=== PATIENT | male | born 1945 | race Caucasian/White ===

== ENCOUNTER 2017-04-07 04:54 | Emergency (ER) | payer BC, MEDICARE ==
[~2017-04-07] VITALS: Ht 193 cm; Wt 120.0 kg
[~2017-04-07 04:54] MED LIST: OXYC-360
[2017-04-07 04:57] VITALS: BP 132/69; PULSE 106; RESP 18; TEMP 99.6; O2SAT 95
[2017-04-07] MEDS ORDERED: ASPI-110 PO (05:06)
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
[2017-04-07] MEDS ORDERED: VITA250T3 PO (05:43)
[2017-04-07] MEDS ORDERED: LISI-515 PO (05:43)
[2017-04-07] MEDS ORDERED: VITACAP7 PO (05:43)
[2017-04-07] MEDS ORDERED: AMBI10TA PO (05:43)
[2017-04-07] MEDS ORDERED: VITA100036 PO (05:43)
[2017-04-07] MEDS ORDERED: DOXA1TAB36 PO (05:43)
[2017-04-07] MEDS ORDERED: AMLO5TAB2 PO (05:43)
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
== END 2017-04-07 06:46 | disposition home or self-care (01) ==
LOC: NEPC 04:54
DX: K08.409 Partial loss of teeth, unspecified cause, unspecified class (principal); S09.90XA Unspecified injury of head, initial encounter; F17.200 Nicotine dependence, unspecified, uncomplicated; Z79.82 Long term (current) use of aspirin; Z87.39 Personal history of other diseases of the musculoskeletal system and connective tissue; V19.3XXA Pedal cyclist (driver) (passenger) injured in unspecified nontraffic accident, initial encounter; Y93.55 Activity, bike riding
CPT/HCPCS: 70450; 70486; 72125; 99285

== ENCOUNTER 2017-04-17 05:22 | Emergency (ER) | payer MEDICARE ==
[~2017-04-17 05:22] MED LIST changes: +AMBI10TA PO; +AMLO5TAB2 PO; +ASPI-110 PO; +DOXA1TAB36 PO; +LISI-515 PO; -OXYC-360; +VITA100036 PO; +VITA250T3 PO; +VITACAP7 PO
[2017-04-17 05:23] VITALS: BP 145/86; PULSE 100; RESP 15; TEMP 98.2; O2SAT 95
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
--- NOTE | 2017-04-17 06:51 | RADRPT ---
EXAM DATE/TIME: 04/17/2017 06:08 [facility] COMPARISON: No previous studies available for comparison. INDICATIONS : Elbow pain. MEDICAL HISTORY : None. SURGICAL HISTORY : None. ENCOUNTER: Initial ACUITY: 2 weeks PAIN SCORE: 7/10 LOCATION: Left upper extremity elbow, posterior. FINDINGS: Multiple view examination of the left elbow demonstrates soft tissue swelling over the extensor surfa ce of the elbow. Calcification in the soft tissues posteriorly may relate to prior injury. No acute b yolanda abnormality. CONCLUSION: 1. Soft tissue swelling on the extensor surface the elbow. No acute bony abnormality. Carlos Garcia MD on April 17, 2017 at 6:48 Board Certified Radiologist. This report was verified electronically.
== END 2017-04-17 06:56 | disposition home or self-care (01) ==
LOC: NEPD 05:22
DX: S52.022A Displaced fracture of olecranon process without intraarticular extension of left ulna, initial encounter for closed fracture (principal); V19.9XXA Pedal cyclist (driver) (passenger) injured in unspecified traffic accident, initial encounter; Y93.55 Activity, bike riding; Y92.414 Local residential or business street as the place of occurrence of the external cause
CPT/HCPCS: 29105; 73080